=== PATIENT | male | born 1985 | race American Indian/Alaskan Native ===

== ENCOUNTER 2023-08-12 13:41 | Emergency (ER) | payer MEDICAID, OTHER | END 2023-08-12 16:10 | LOC: JP.ED 13:41 | DX: R76.11 Nonspecific reaction to tuberculin skin test without active tuberculosis (principal); Z88.5 Allergy status to narcotic agent; Z88.8 Allergy status to other drugs, medicaments and biological substances; Z79.899 Other long term (current) drug therapy | CPT/HCPCS: 71046; 71046-26; 99283 ==

== ENCOUNTER 2024-12-04 19:44 | Emergency (ER) | payer MEDICAID, OTHER ==
[~2024-12-04 19:44] MED LIST: Naloxone 0.4 MG/ML SDV ONE
[2024-12-04] MEDS: Naloxone 0.4 MG/ML SDV IM ONE (20:07)
[2024-12-04 20:16] LABS: BASOPHILS ABSOLUTE AUTO 0.06 K/uL (0.00-0.10); BASOPHILS PERCENT AUTO 0.4 % (0.1-1.3); EOSINOPHILS ABSOLUTE AUTO 0.05 K/uL (0.00-0.40); EOSINOPHILS PERCENT AUTO 0.4 % (0.0-5.4); IMMATURE GRAN ABSOLUTE AUTO 0.05 K/uL (0.00-0.23); IMMATURE GRAN PERCENT AUTO 0.4 % (0.0-0.7); LYMPHOCYTES ABSOLUTE AUTO 1.59 K/uL (0.8-3.3); LYMPHOCYTES PERCENT AUTO 11.5 % (11.4-47.7); MONOCYTES ABSOLUTE AUTO 0.39 K/uL (0.20-0.90); MONOCYTES PERCENT AUTO 2.8 % (3.3-12.6); NEUTROPHILS ABSOLUTE AUTO 11.69 K/uL (1.0-7.6); NEUTROPHILS PERCENT AUTO 84.5 % (40.0-78.1); PLATELET COUNT,PLT 258 K/uL (130-375); RED BLOOD CELL COUNT 5.60 M/uL (4.14-5.76); WHITE BLOOD CELL COUNT,WBC 13.8 K/uL (3.2-11.0)
[2024-12-04 20:18] LABS: BASE EXCESS ARTERIAL 3.0 mm/L; BICARBONATE,ARTERIAL 28.1 mmol/L (22.0-26.0); O2 SATURATION ARTERIAL 86.1 % (95.0-98.0); OXYHEMOGLOBIN 81.0 %; PCO2 ARTERIAL 46.4 mmHg (35.0-42.0); PO2 ARTERIAL 52.6 mmHg (75.0-100.0); TOTAL HEMOGLOBIN 16.1 g/dL (13.5-18.0)
[2024-12-04] MEDS: Naloxone 0.4 MG/ML SDV IVPUSH ONE (20:29)
[2024-12-04 20:37] LABS: A/G RATIO 1.1 (1.2-2.2); ALANINE AMINOTRANSFERASE,ALT 63 U/L (12-78); ASPARTATE AMNIOTRANSFERASE,AST 40 U/L (15-37); BILIRUBIN TOTAL 0.3 mg/dL (0.2-1.0); BLOOD UREA NITROGEN,BUN 6 mg/dL (7-18); CARBON DIOXIDE,CO2 30 mmol/L (21-32); CHLORIDE,CL 102 mmol/L (100-108); CREATININE 0.9 mg/dL (0.8-1.3); ESTIMATED GFR 111 mL/min (>60); GLUCOSE RANDOM 106 mg/dL (74-106); INR 1.0; POTASSIUM,K 3.6 mmol/L (3.6-5.2); PROTEIN TOTAL,TP 7.6 g/dL (6.4-8.2); SODIUM,NA 139 mmol/L (140-148)
[2024-12-04 20:41] LABS: AMPHETAMINES SCREEN, URINE PRESUMPTIVE POSITIVE (NEGATIVE); METHADONE SCREEN, URINE NEGATIVE (NEGATIVE); METHAMPHETAMINES SCREEN, URINE PRESUMPTIVE POSITIVE (NEGATIVE); OXYCODONE SCREEN,URINE NEGATIVE (NEGATIVE); PROPOXYPHENE SCREEN,URINE NEGATIVE (NEGATIVE); THC SCREEN,URINE 50 NG/ML NEGATIVE (NEGATIVE)
[2024-12-04] MEDS: Naloxone 0.4 MG/ML SDV ONE (21:12)
[2024-12-04] MEDS: Naloxone 0.4 MG/ML SDV IVPUSH STA (21:28)
[2024-12-04] MEDS: LORazepam 2 MG/ML SDV IVPUSH ONE (23:48)
[2024-12-05] MEDS: Ondansetron 4 MG/2 ML SDV IVPUSH ONE (02:07)
== END 2024-12-05 02:46 ==
LOC: JP.ED 19:44
DX: R41.82 Altered mental status, unspecified (principal); J45.909 Unspecified asthma, uncomplicated; Z88.8 Allergy status to other drugs, medicaments and biological substances; Z79.899 Other long term (current) drug therapy
CPT/HCPCS: 36415; 51702; 70450; 74018; 80053; 80305; 80307; 82803; 85025; 85610; 96361; 96365; 96372; 96375; 99285; J1953; J2312; J2405; J7030